=== PATIENT | female | born 1975 | race Caucasian/White ===

== ENCOUNTER 2017-10-03 11:44 | Emergency (ER) | payer BC ==
[2017-10-03 12:30] VITALS: BP 125/75
--- NOTE | 2017-10-03 12:30 | EDM.PDOC ---
ED HPI GENERAL MEDICAL PROBLEM - General Chief Complaint: General Stated Complaint: LEFT LEG PAIN Time Seen by Provider: 10/03/17 12:24 Source of Information: Reports: Patient, Family History Limitations: Reports: No Limitations - History of Present Illness INITIAL COMMENTS - FREE TEXT/NARRATIVE: 41 y.o.w.f with a h/o left lower leg varicosis came to the ed with her sister due to severe pain and swelling of her left lower leg. No SOB, Pt denies H/O DVT. No C/P, no N/V/D or any other acute medical issues. BP: 125/75 RR 18 Temp 36.6 O2 sat 98% on RA pulse 75 Onset Date: 10/03/17 Onset Time: 07:00 Duration: Hour(s): Location: Reports: Lower Extremity, Left Quality: Reports: Ache, Burning, Dull, Throbbing Severity: Moderate Improves with: Reports: Rest Worsens with: Reports: Movement Context: Reports: Other (H/O severe varicosis left lower leg) Associated Symptoms: Reports: Nausea/Vomiting (nasuae and spitting) - Related Data Allergies Allergy/AdvReac Type Severity Reaction Status Date / Time No Known Allergies Allergy Verified 10/03/17 12:17 ED ROS GENERAL - Review of Systems Review Of Systems: See Below Constitutional: Reports: No Symptoms HEENT: Reports: No Symptoms Respiratory: Reports: No Symptoms Cardiovascular: Reports: No Symptoms Endocrine: Reports: No Symptoms GI/Abdominal: Reports: No Symptoms : Reports: No Symptoms Musculoskeletal: Reports: Leg Pain (left ) Skin: Reports: No Symptoms Neurological: Reports: No Symptoms, Tingling (left lower leg) Psychiatric: Reports: No Symptoms Hematologic/Lymphatic: Reports: No Symptoms Immunologic: Reports: No Symptoms ED EXAM, GENERAL - Physical Exam Exam: See Below Exam Limited By: No Limitations General Appearance: Alert, WD/WN, Mild Distress Eye Exam: Bilateral Eye: Normal Inspection Ears: Normal External Exam, Normal Canal Ear Exam: Bilateral Ear: Auricle Normal Nose: Normal Inspection, Normal Mucosa, No Blood Throat/Mouth: Normal Inspection, Normal Lips, Normal Voice, No Airway Compromise Head: Atraumatic, Normocephalic Neck: Normal Inspection, Supple, Non-Tender Respiratory/Chest: No Respiratory Distress, Lungs Clear, Normal Breath Sounds Cardiovascular: Normal Peripheral Pulses, Regular Rate, Rhythm, No Edema Peripheral Pulses: 1+: Brachial (R) GI/Abdominal: Normal Bowel Sounds, Soft, Non-Tender, No Organomegaly, No Distention, No Abnormal Bruit, No Mass, Pelvis Stable (Female) Exam: Deferred Rectal (Female) Exam: Deferred Back Exam: Normal Inspection, Full Range of Motion Extremities: Normal Range of Motion, No Pedal Edema, Normal Capillary Refill, [place]'s Sign, Leg Pain, Limited Range of Motion, Other (severe varicosis left lower leg) Neurological: Alert, Oriented, CN II-XII Intact, Normal Cognition, Normal Gait, No Motor/Sensory Deficits Psychiatric: Normal Affect, Normal Mood Skin Exam: Warm, Dry, Intact, Normal Color, No Rash Lymphatic: No Adenopathy Course - Vital Signs Text/Narrative:: 41 y.o.w.f with a h/o left lower leg varicosis came to the ed with her sister due to severe pain and swelling of her left lower leg. No SOB, Pt denies H/O DVT. No C/P, no N/V/D or any other acute medical issues. BP: 125/75 RR 18 Temp 36.6 O2 sat 98% on RA pulse 75 PE: WNWD W F came to the ed with left lower leg swelling and varicosis, No SOB or CP Imaging: No US available till wednesday Impression: Varicosis left leg, pos [place] sign 12.22 pm Consultation: Dr. Nga CAVAZOS [facility]: Acepted the pt for further care. Plan: PT will go by PC, with Sister, directly to the ED [place] now. EMTALA form was signed Last Recorded V/S: Last Vital Signs Temp 36.9 C 10/03/17 12:15 Pulse 81 10/03/17 12:15 Resp 18 10/03/17 12:15 BP 125/75 10/03/17 12:15 Pulse Ox 98 10/03/17 12:15 Departure - Departure Time of Disposition: 12:31 Disposition: DC/Tfer to [facility] Condition: Good Clinical Impression: Leg swelling - Discharge Information Referrals: James Ruth MD [Primary Care Provider] - Forms: ED Department Discharge Additional Instructions: Please go straight to the ED at [facility]. I have spoken to Dr. Liang. DIRK. No Food, no drinks etx.
== END 2017-10-03 12:40 ==
LOC: FB.ED 11:44
DX: I83.892 Varicose veins of left lower extremity with other complications (principal)
CPT/HCPCS: 99284

== ENCOUNTER 2020-01-25 14:39 | Inpatient (IN) | payer BC ==
[2020-01-25] MEDS ORDERED: Promethazine 25 MG Tab PO PRN (15:28)
[2020-01-25] MEDS ORDERED: Ondansetron 4 MG/2 ML SDV IVPUSH PRN (15:28)
[2020-01-25] MEDS ORDERED: Polyethylene Glycol 3350 Powder 17 GM Packet PO PRN (15:35)
[2020-01-25] MEDS ORDERED: Sodium Chloride 0.9% 10 ML Syringe FLUSH PRN (15:35)
[2020-01-25] MEDS ORDERED: cefTRIAXone 2 GM in Sodium Chloride 0.9% 50 ML IV SCH (15:45)
[2020-01-25] MEDS: Sodium Chloride 0.9% 1,000 ML IV SCH (16:03)
[2020-01-25] MEDS: cefTRIAXone 2 GM Vial IVPUSH SCH (16:10)
[2020-01-25] MEDS: Azithromycin 500 MG in Sodium Chloride 0.9% 250 ML IV SCH (16:20)
[2020-01-25] MEDS: Acetaminophen 325 MG Tab PO PRN (16:26)
[2020-01-25] MEDS ORDERED: Sodium Chloride 0.9% 500 ML IV ONE (17:43)
--- NOTE | 2020-01-25 18:01 | PCM.HP.2 ---
H&P History of Present Illness - General Date of Service: 01/25/20 Admit Problem/Dx: Admission Diagnosis/Problem Admission Diagnosis/Problem Pneumonia Source of Information: Patient, Provider - History of Present Illness Initial Comments - Free Text/Narative: Jenny [facility] with fever, chills, shortness of breath, wheezing for past 4 days. She had gotten a cold over Labor Day that her daughter had, but was feeling better going into the weekend. On Wednesday she started having fevers, chills and started declining since then. Sore throat, nasal congestion, body aches. Loss of appetite, hasn't eaten much all week. Started having nausea and vomiting yesterday. No diarrhea, tends to have constipation, takes MiraLAX for this. No dysuria, or frequency, hematuria. Decreased urine output. No rash, easy bruising or bleeding. WBC in clinic was 13.0, with left shift. Chemistry was normal, LFTs were normal. COVID and Influenza were negative. CXR should Right lower lobe pneumonia. Temp in clinic was 100.7, had taken Tylenol before coming to clinic, her blood pressure 93/55. Oxygen in clinic was 90% on Room air, given nebulized treatment, no change in oxygen saturation there but came up to 93% when she reached the floor. - Related Data Allergies/Adverse Reactions: Allergies Allergy/AdvReac Type Severity Reaction Status Date / Time No Known Allergies Allergy Verified 01/25/20 16:19 Home Medications: Home Meds .Fish Oil 1 cap PO 199910/03/17 [History] Multivitamin [Daily Multiple Vitamin] 1 tab PO 199910/03/17 [History] lisinopriL [Lisinopril] 10 mg PO 199901/25/20 [History] Past Medical History HEENT History: Reports: Other (See Below) Other HEENT History: Wears glasses. Cardiovascular History: Reports: Other (See Below) Other Cardiovascular History: Takes Lisinopril. Respiratory History: Reports: Asthma, Pneumonia, Recurrent, Other (See Below) Other Respiratory History: care home smoker. D[employer] History: Reports: Neurological History: Reports: Migraines, Other (See Below) Other Neuro History: Receives Botox shots every 12 weeks for migraines. - Infectious Disease History Infectious Disease History: Reports: Chicken Pox - Past Surgical History GI Surgical History: Reports: Cholecystectomy, Hernia, Abdominal, Other (See Below) Other GI Surgeries/Procedures: Recent weight lost as a result of lifestyle changes. States 6 surgeries on umbilical hernia, had pig skin placed. Female Surgical History: Reports: Hysterectomy Musculoskeletal Surgical History: Reports: Other (See Below) Other Musculoskeletal Surgeries/Procedures:: History of cyst removed from left foot and tail bone. History of toe nail removed both great toes. Social & Family History - Tobacco Use Smoking Status *Q: Current Every Day Smoker Years of Tobacco use: 26 Packs/Tins Daily: 0.5 H&P Review of Systems - Review of Systems: Review Of Systems: Comprehensive ROS is negative, except as noted in HPI. Exam - Exam Exam: See Below - Vital Signs Vital Signs: Last Vital Signs Temp 98.2 F 01/25/20 17:30 Pulse 81 01/25/20 17:30 Resp 18 01/25/20 17:30 BP 91/33 L 01/25/20 17:30 Pulse Ox 93 L 01/25/20 17:30 Weight: 210 lb 1.6 oz - Exam General: Alert, Oriented, Cooperative, Mild Distress HEENT: PERRLA, Conjunctiva Clear, EOMI, Hearing Intact, Mucosa Moist & [place], Posterior Pharynx Clear, Other Neck: Supple, Trachea Midline, Lymphadenopathy Lungs: Normal Respiratory Effort, Rales (RLL), Wheezing (wheezing throughout) Cardiovascular: Regular Rate, Regular Rhythm, Normal S1, Normal S2 GI/Abdominal Exam: Normal Bowel Sounds, Soft, Non-Tender, No Distention (Female) Exam: Deferred Rectal (Female) Exam: Deferred Back Exam: Normal Inspection. No: CVA Tenderness (R), CVA Tenderness (L) Extremities: Normal Inspection, No Pedal Edema, Normal Capillary Refill Peripheral Pulses: 2+: Radial (L), Radial (R), Posterior Tibial (L), Posterior Tibial (R), Dorsalis Pedis (L), Dorsalis Pedis (R) Skin: Warm, Dry, Intact Neurological: Cranial Nerves Intact, Normal Speech Sepsis Event Note - Evaluation Sepsis Screening Result: No Definite Risk - Focused Exam Vital Signs: Vital Signs Temp Pulse Resp BP Pulse Ox 01/25/20 17:30 98.2 F 81 18 91/33 L 93 L 01/25/20 15:28 98.8 F 83 18 93/55 L 93 L *Q Meaningful Use (ADM) - VTE Risk Assess *Q Each Risk Factor Represents 1 Point: Age 41 - 59 years, Serious lung disease including pneumonia Total Score 1 Point Risk Factors: 2 Each Risk Factor Represents 2 Points: None Total Score 2 Point Risk Factors: 0 Each Risk Factor Represents 3 Points: None Total Score 3 Point Risk Factors: 0 Each Risk Factor Represents 5 Points: None Total Score 5 Point Risk Factors: 0 Venous Thromboembolism Risk Factor Score *Q: 2 - Problem List (1) Pneumonia SNOMED Code(s): 257480478 ICD Code: J18.9 - PNEUMONIA, UNSPECIFIED ORGANISM Status: Acute Current Visit: Yes Qualifiers: Laterality: right Lung location: lower lobe of lung (2) Dehydration SNOMED Code(s): 87257075 ICD Code: E86.0 - DEHYDRATION Status: Acute Current Visit: Yes (3) Nausea & vomiting SNOMED Code(s): 93709263 ICD Code: R11.2 - NAUSEA WITH VOMITING, UNSPECIFIED Status: Acute Current Visit: Yes (4) Asthma SNOMED Code(s): 877680922 ICD Code: J45.909 - UNSPECIFIED ASTHMA, UNCOMPLICATED Status: Chronic Current Visit: Yes Problem List Initiated/Reviewed/Updated: Yes Orders Last 24hrs: Active Orders 24 hr Category Date Time Status Patient Status [ADT] Routine ADT 01/25/20 15:28 Active Ambulate [RC] .PRN Care 01/25/20 15:29 Active Oxygen Therapy [RC] .PRN Care 01/25/20 15:28 Active Pneumonia Education [RC] ASDIRECTED Care 01/25/20 15:37 Active RT Aerosol Therapy [RC] ASDIRECTED Care 01/25/20 15:37 Active RT Incentive Spirometry [RC] Q1HWA Care 01/25/20 15:37 Active Up ad Debbie [RC] .PRN Care 01/25/20 15:28 Active Vital Signs [RC] 00,04,08,12,16,20 Care 01/25/20 15:28 Active Clear Liquid Diet [DIET] Diet 01/25/20 Dinner Active BASIC METABOLIC PANEL,BMP [CHEM] Routine Lab 01/26/20 06:00 Ordered CBC WITH AUTO DIFF [HEME] Routine Lab 01/26/20 06:00 Ordered CULTURE BLOOD [BC] Urgent Lab 01/25/20 15:52 Received CULTURE BLOOD [BC] Urgent Lab 01/25/20 15:58 Received CULTURE SPUTUM + SMEAR [RM] Routine Lab 01/25/20 15:37 Ordered Acetaminophen [TylenoL] Med 01/25/20 15:28 Active 650 mg PO Q4H PRN Albuterol [Proventil Neb Soln] Med 01/25/20 15:28 Active 2.5 mg NEB Q2H PRN Azithromycin [Zithromax] 500 mg Med 01/25/20 16:00 Active Sodium Chloride 0.9% [Normal Saline (AdvBag)] 250 ml IV Q24H Ibuprofen [Motrin] Med 01/25/20 15:28 Active 400 mg PO Q6H PRN Multivitamins [Tab-A-Brittaney] Med 01/25/20 20:00 Ordered 1 tab PO 2000 Ondansetron [Zofran] Med 01/25/20 15:28 Active 4 mg IVPUSH Q4H PRN Promethazine [Phenergan] Med 01/25/20 15:28 Active 25 mg PO Q6H PRN Sodium Chloride 0.9% [Normal Saline] 1,000 ml Med 01/25/20 15:30 Active IV ASDIRECTED Sodium Chloride 0.9% [Normal Saline] 500 ml Med 01/25/20 17:43 Ordered IV .BOLUS Sodium Chloride 0.9% [Saline Flush] Med 01/25/20 15:35 Active 10 ml FLUSH ASDIRECTED PRN cefTRIAXone [Rocephin] Med 01/25/20 16:00 Active 2 gm IVPUSH Q24H guaiFENesin [Mucinex] Med 01/25/20 21:00 Active 600 mg PO BID polyethylene glycoL 3350 [MiraLAX] Med 01/25/20 15:35 Active 17 gm PO DAILY PRN Blood Culture x2 Reflex Set [OM.PC] Urgent Oth 01/25/20 15:37 Ordered Give supplemental Oxygen PRN [COMM] Routine Oth 01/25/20 15:37 Ordered Saline Lock Insert [OM.PC] Routine Oth 01/25/20 15:28 Ordered Resuscitation Status Routine Resus Stat 01/25/20 15:28 Ordered Medication Orders Acetaminophen (Tylenol) 650 mg PO Q4H PRN PRN Reason: Pain (Mild 1-3)/fever Last Admin: 01/25/20 16:26 Dose: 650 mg Documented by: MICAELA Albuterol (Proventil Neb Soln) 2.5 mg NEB Q2H PRN PRN Reason: Shortness Of Breath/wheezing Ceftriaxone Sodium (Rocephin) 2 gm IVPUSH Q24H [facility] Last Admin: 01/25/20 16:10 Dose: 2 gm Documented by: MICAELA Guaifenesin (Mucinex) 600 mg PO BID [facility] Sodium Chloride (Normal Saline) 1,000 mls @ 125 mls/hr IV ASDIRECTED [facility] Last Admin: 01/25/20 16:03 Dose: 125 mls/hr Documented by: MICAELA Azithromycin 500 mg/ Sodium (Chloride) 250 mls @ 250 mls/hr IV Q24H [facility] Last Admin: 01/25/20 16:20 Dose: 250 mls/hr Documented by: MICAELA Ibuprofen (Motrin) 400 mg PO Q6H PRN PRN Reason: Pain (mild 1-3) Multivitamins/Minerals/Vitamin C (Tab-A-Brittaney) 1 tab PO 2000 [facility] Ondansetron HCl (Zofran) 4 mg IVPUSH Q4H PRN PRN Reason: Nausea/Vomiting Polyethylene Glycol (Miralax) 17 gm PO DAILY PRN PRN Reason: Constipation Promethazine HCl (Phenergan) 25 mg PO Q6H PRN PRN Reason: nausea, able to take PO Sodium Chloride (Saline Flush) 10 ml FLUSH ASDIRECTED PRN PRN Reason: Keep Vein Open Assessment/Plan Comment:: 1. Admit to inpatient for pneumonia, history of asthma. 2. Rocephin 2 g IV q24h, Azithromycin 500 mg IV q24h. Albuterol nebs. Repeat labs tomorrow. 3. Clear liquids. Zofran and Phenergan as needed nausea. 4. NS 500 ml bolus, then 125 ml/hr. 5. FULL CODE. 6. Adjust treatments as necessary. - Mortality Measure Prognosis:: Good
[2020-01-25] MEDS: Albuterol 0.083% 2.5 MG/3 ML Neb Soln NEB PRN ×2 (18:56→20:58)
[2020-01-25] MEDS: guaiFENesin 600 MG Tab.ER PO SCH (20:58)
[2020-01-25] MEDS: Multivitamin Tab PO SCH (20:58)
[2020-01-26] MEDS: Albuterol 0.083% 2.5 MG/3 ML Neb Soln NEB PRN ×6 (02:09→21:21)
[2020-01-26] MEDS: Sodium Chloride 0.9% 1,000 ML IV SCH ×3 (02:09→19:19)
[2020-01-26] MEDS: Ibuprofen 400 MG Tab PO PRN ×3 (02:32→15:59)
[2020-01-26] MEDS: guaiFENesin 600 MG Tab.ER PO SCH ×2 (08:19→20:41)
[2020-01-26] MEDS: Saccharomyces Boulardii (Probiotic) 250 MG Cap PO SCH ×2 (10:13→20:41)
[2020-01-26] MEDS: Acetaminophen 325 MG Tab PO PRN ×2 (12:38→18:35)
--- NOTE | 2020-01-26 14:21 | PCM.PN ---
- General Info Date of Service: 01/26/20 Subjective Update: Jenny is feeling better, still has a headache, states it is not like her migraine, states she has this type when her blood pressure is low. Her wheezing is better, doesn't feel as tight. No nausea or vomiting. Has not had a bowel movement and having some pain with it. Body aches are better. - Patient Data Vitals - Most Recent: Last Vital Signs Temp 98.0 F 01/26/20 12:00 Pulse 65 01/26/20 12:00 Resp 17 01/26/20 12:00 BP 103/58 L 01/26/20 12:00 Pulse Ox 95 01/26/20 12:00 Weight - Most Recent: 210 lb 1.6 oz I&O - Last 24 Hours: Intake & Output 01/25/20 01/26/20 01/26/20 22:59 06:59 14:59 Intake Total 1496 908 Output Total 0 Balance 1496 908 Lab Results Last 24 Hours: Laboratory Results - last 24 hr 01/26/20 01/26/20 Range/Units 06:06 06:06 WBC 7.6 (4.5-12.0) X10-3/uL RBC 3.91 (3.23-5.20) x10(6)uL Hgb 12.5 (11.5-15.5) g/dL Hct 38.2 (30.0-51.3) % MCV 97.6 H (80-96) fL MCH 32.1 (27.7-33.6) pg MCHC 32.9 (32.2-35.4) g/dL RDW 12.1 (11.5-15.5) % Plt Count 266 (125-369) X10(3)uL MPV 6.6 L (7.4-10.4) fL Neut % (Auto) 63.8 (46-82) % Lymph % (Auto) 26.0 (13-37) % [place] % (Auto) 8.5 (4-12) % Eos % (Auto) 1 (1.0-5.0) % Baso % (Auto) 1 (0-2) % Neut # (Auto) 4.9 (1.6-8.3) # Lymph # (Auto) 2.0 (0.6-5.0) # [place] # (Auto) 0.6 (0.0-1.3) # Eos # (Auto) 0.1 (0.0-0.8) # Baso # (Auto) 0.0 (0.0-0.2) # Sodium 142 (135-145) mmol/L Potassium 4.6 (3.5-5.3) mmol/L Chloride 108 D (100-110) mmol/L Carbon Dioxide 27 (21-32) mmol/L BUN 5 L (7-18) mg/dL Creatinine 0.5 L (0.55-1.02) mg/dL Est Cr Clr Drug Dosing 125.28 mL/min Estimated GFR (MDRD) > 60 (>60) BUN/Creatinine Ratio 10.0 (9-20) Glucose 85 (80-116) mg/dL Calcium 8.2 L (8.6-10.2) mg/dL Med Orders - Current: Current Medications Acetaminophen (Tylenol) 650 mg PO Q4H PRN PRN Reason: Pain (Mild 1-3)/fever Last Admin: 01/26/20 12:38 Dose: 650 mg Documented by: Albuterol (Proventil Neb Soln) 2.5 mg NEB Q2H PRN PRN Reason: Shortness Of Breath/wheezing Last Admin: 01/26/20 12:39 Dose: 2.5 mg Documented by: Ceftriaxone Sodium (Rocephin) 2 gm IVPUSH Q24H [facility] Last Admin: 01/25/20 16:10 Dose: 2 gm Documented by: Guaifenesin (Mucinex) 600 mg PO BID [facility] Last Admin: 01/26/20 08:19 Dose: 600 mg Documented by: Sodium Chloride (Normal Saline) 1,000 mls @ 125 mls/hr IV ASDIRECTED [facility] Last Admin: 01/26/20 10:14 Dose: 125 mls/hr Documented by: Azithromycin 500 mg/ Sodium (Chloride) 250 mls @ 250 mls/hr IV Q24H [facility] Last Admin: 01/25/20 16:20 Dose: 250 mls/hr Documented by: Ibuprofen (Motrin) 400 mg PO Q6H PRN PRN Reason: Pain (mild 1-3) Last Admin: 01/26/20 08:22 Dose: 400 mg Documented by: Multivitamins/Minerals/Vitamin C (Tab-A-Brittaney) 1 tab PO DAILY@1999 [facility] Last Admin: 01/25/20 20:58 Dose: 1 tab Documented by: Ondansetron HCl (Zofran) 4 mg IVPUSH Q4H PRN PRN Reason: Nausea/Vomiting Last Admin: 01/25/20 17:55 Dose: 4 mg Documented by: Polyethylene Glycol (Miralax) 17 gm PO DAILY PRN PRN Reason: Constipation Last Admin: 01/26/20 08:28 Dose: 17 gm Documented by: Promethazine HCl (Phenergan) 25 mg PO Q6H PRN PRN Reason: nausea, able to take PO Saccharomyces Boulardii (Florastor) 250 mg PO BID [facility] Last Admin: 01/26/20 10:13 Dose: 250 mg Documented by: Sodium Chloride (Saline Flush) 10 ml FLUSH ASDIRECTED PRN PRN Reason: Keep Vein Open Discontinued Medications Sodium Chloride (Normal Saline) 500 mls @ 500 mls/hr IV .BOLUS ONE Stop: 01/25/20 18:42 Last Admin: 01/25/20 17:54 Dose: 500 mls/hr Documented by: - Exam General: Alert, Oriented, Cooperative, No Acute Distress Lungs: Clear to Auscultation (BUL), Normal Respiratory Effort, Decreased Breath Sounds (RLL), Crackles (RLL). No: Wheezing Cardiovascular: Regular Rate, Regular Rhythm, No Murmurs GI/Abdominal Exam: Normal Bowel Sounds, Soft, No Distention, Guarding, Tender (diffuse). No: Rigid, Rebound Extremities: No Pedal Edema Peripheral Pulses: 2+: Radial (L), Radial (R) Skin: Warm, Dry, Intact Sepsis Event Note - Evaluation Sepsis Screening Result: No Definite Risk - Focused Exam Vital Signs: Vital Signs Temp Pulse Resp BP Pulse Ox 01/26/20 12:00 98.0 F 65 17 103/58 L 95 01/26/20 08:00 98.0 F 64 18 100/50 L 94 L 01/26/20 06:00 97.7 F 78 16 104/64 97 - Problem List & Annotations (1) Pneumonia SNOMED Code(s): 038470511 Code(s): J18.9 - PNEUMONIA, UNSPECIFIED ORGANISM Status: Acute Current Visit: Yes Qualifiers: Laterality: right Lung location: lower lobe of lung (2) Dehydration SNOMED Code(s): 83424258 Code(s): E86.0 - DEHYDRATION Status: Acute Current Visit: Yes (3) Nausea & vomiting SNOMED Code(s): 25614735 Code(s): R11.2 - NAUSEA WITH VOMITING, UNSPECIFIED Status: Resolved Current Visit: Yes (4) Asthma SNOMED Code(s): 432458021 Code(s): J45.909 - UNSPECIFIED ASTHMA, UNCOMPLICATED Status: Chronic Current Visit: Yes - Problem List Review Problem List Initiated/Reviewed/Updated: Yes - My Orders Last 24 Hours: My Active Orders 01/25/20 15:28 Patient Status [ADT] Routine Oxygen Therapy [RC] .PRN Up ad Debbie [RC] .PRN Vital Signs [RC] 00,04,08,12,16,20 Acetaminophen [TylenoL] 650 mg PO Q4H PRN Albuterol [Proventil Neb Soln] 2.5 mg NEB Q2H PRN Ibuprofen [Motrin] 400 mg PO Q6H PRN Ondansetron [Zofran] 4 mg IVPUSH Q4H PRN Promethazine [Phenergan] 25 mg PO Q6H PRN Saline Lock Insert [OM.PC] Routine Resuscitation Status Routine 01/25/20 15:29 Ambulate [RC] .PRN 01/25/20 15:30 Sodium Chloride 0.9% [Normal Saline] 1,000 ml IV ASDIRECTED 01/25/20 15:35 Sodium Chloride 0.9% [Saline Flush] 10 ml FLUSH ASDIRECTED PRN polyethylene glycoL 3350 [MiraLAX] 17 gm PO DAILY PRN 01/25/20 15:37 Pneumonia Education [RC] ASDIRECTED RT Aerosol Therapy [RC] .PRN RT Incentive Spirometry [RC] Q1HWA CULTURE SPUTUM + SMEAR [RM] Routine Blood Culture x2 Reflex Set [OM.PC] Urgent Give supplemental Oxygen PRN [COMM] Routine 01/25/20 15:52 CULTURE BLOOD [BC] Urgent 01/25/20 15:58 CULTURE BLOOD [BC] Urgent 01/25/20 16:00 Azithromycin [Zithromax] 500 mg Sodium Chloride 0.9% [Normal Saline (AdvBag)] 250 ml IV Q24H cefTRIAXone [Rocephin] 2 gm IVPUSH Q24H 01/25/20 Dinner Clear Liquid Diet [DIET] 01/25/20 20:00 Multivitamins [Tab-A-Brittaney] 1 tab PO DAILY@199901/25/20 21:00 guaiFENesin [Mucinex] 600 mg PO BID 01/26/20 09:15 Saccharomyces Boulardii [Florastor] 250 mg PO BID - Plan Plan:: 1. Pneumonia: Rocephin 2 g IV q24h, Azithromycin 500 mg IV q24h day 2. Albuterol nebs. Labs normal today, follow clinically. 2. Clear liquids, does not want to advance her diet yet. Zofran and Phenergan as needed nausea. 3. NS 125 ml/hr. 4. Adjust treatments as necessary.
[2020-01-26] MEDS: Azithromycin 500 MG in Sodium Chloride 0.9% 250 ML IV SCH (15:42)
[2020-01-26] MEDS: cefTRIAXone 2 GM Vial IVPUSH SCH (16:01)
[2020-01-26] MEDS: Multivitamin Tab PO SCH (20:41)
[2020-01-26] MEDS: Budesonide 0.25 MG/2 ML Neb Susp NEB SCH (21:43)
[2020-01-27] MEDS: Sodium Chloride 0.9% 1,000 ML IV SCH ×3 (02:51→21:32)
[2020-01-27] MEDS: Budesonide 0.25 MG/2 ML Neb Susp NEB SCH ×2 (06:01→21:05)
[2020-01-27] MEDS: Albuterol 0.083% 2.5 MG/3 ML Neb Soln NEB PRN ×3 (07:55→20:37)
[2020-01-27] MEDS: Acetaminophen 325 MG Tab PO PRN ×3 (07:57→17:41)
[2020-01-27] MEDS: guaiFENesin 600 MG Tab.ER PO SCH ×2 (08:01→20:39)
[2020-01-27] MEDS: Saccharomyces Boulardii (Probiotic) 250 MG Cap PO SCH ×2 (08:01→20:38)
[2020-01-27] MEDS: Ibuprofen 400 MG Tab PO PRN ×2 (08:02→20:45)
--- NOTE | 2020-01-27 10:27 | PCM.PN ---
- General Info Date of Service: 01/27/20 Subjective Update: Jenny slept well last night, was able to get up to bathroom independently this morning, still wheezing. Was able to give us a sputum culture. Budesonide nebs are helping. Her headache is better with improvement of her blood pressure, pain controlled with Tylenol & Ibuprofen. No BM yet. Agreeable to get up and walk today. Restarted her home MiraLAX, and Metamucil in addition to twice a day Probiotic. - Patient Data Vitals - Most Recent: Last Vital Signs Temp 98.4 F 01/27/20 07:46 Pulse 79 01/27/20 07:46 Resp 18 01/27/20 07:46 BP 125/71 01/27/20 06:00 Pulse Ox 94 L 01/27/20 07:46 Weight - Most Recent: 210 lb 1.6 oz I&O - Last 24 Hours: Intake & Output 01/26/20 01/27/20 01/27/20 22:59 06:59 14:59 Intake Total 2040 1048 Balance 2040 1048 Lab Results Last 24 Hours: Laboratory Results - last 24 hr 01/27/20 01/27/20 Range/Units 06:15 06:15 WBC 7.1 (4.5-12.0) X10-3/uL RBC 3.81 (3.23-5.20) x10(6)uL Hgb 12.4 (11.5-15.5) g/dL Hct 37.5 (30.0-51.3) % MCV 98.4 H (80-96) fL MCH 32.6 (27.7-33.6) pg MCHC 33.2 (32.2-35.4) g/dL RDW 12.1 (11.5-15.5) % Plt Count 286 (125-369) X10(3)uL MPV 6.9 L (7.4-10.4) fL Neut % (Auto) 62.9 (46-82) % Lymph % (Auto) 24.2 (13-37) % Runnels % (Auto) 9.4 (4-12) % Eos % (Auto) 3 (1.0-5.0) % Baso % (Auto) 1 (0-2) % Neut # (Auto) 4.5 (1.6-8.3) # Lymph # (Auto) 1.7 (0.6-5.0) # Runnels # (Auto) 0.7 (0.0-1.3) # Eos # (Auto) 0.2 (0.0-0.8) # Baso # (Auto) 0.0 (0.0-0.2) # Sodium 144 (135-145) mmol/L Potassium 3.9 (3.5-5.3) mmol/L Chloride 108 (100-110) mmol/L Carbon Dioxide 26 (21-32) mmol/L BUN 4 L (7-18) mg/dL Creatinine 0.6 (0.55-1.02) mg/dL Est Cr Clr Drug Dosing 104.40 mL/min Estimated GFR (MDRD) > 60 (>60) BUN/Creatinine Ratio 6.7 L (9-20) Glucose 85 (80-116) mg/dL Calcium 8.1 L (8.6-10.2) mg/dL Lamonte Results Last 24 Hours: Microbiology 01/26/20 17:30 Gram Stain - Final Sputum - Expectorated 01/25/20 15:52 Aerobic Blood Culture - Preliminary Blood - Venous NO GROWTH AFTER 1 DAY Anaerobic Blood Culture - Preliminary NO GROWTH AFTER 1 DAY 01/25/20 15:58 Aerobic Blood Culture - Preliminary Blood - Venous - Lab Draw NO GROWTH AFTER 1 DAY Anaerobic Blood Culture - Preliminary NO GROWTH AFTER 1 DAY Med Orders - Current: Current Medications Acetaminophen (Tylenol) 650 mg PO Q4H PRN PRN Reason: Pain (Mild 1-3)/fever Last Admin: 01/27/20 07:57 Dose: 650 mg Documented by: Albuterol (Proventil Neb Soln) 2.5 mg NEB Q2H PRN PRN Reason: Shortness Of Breath/wheezing Last Admin: 01/27/20 07:55 Dose: 2.5 mg Documented by: Budesonide (Pulmicort) 0.25 mg NEB BIDRT [facility] Last Admin: 01/27/20 06:01 Dose: 0.25 mg Documented by: Ceftriaxone Sodium (Rocephin) 2 gm IVPUSH Q24H [facility] Last Admin: 01/26/20 16:01 Dose: 2 gm Documented by: Guaifenesin (Mucinex) 600 mg PO BID [facility] Last Admin: 01/27/20 08:01 Dose: 600 mg Documented by: Sodium Chloride (Normal Saline) 1,000 mls @ 100 mls/hr IV ASDIRECTED [facility] Last Admin: 01/27/20 02:51 Dose: 125 mls/hr Documented by: Azithromycin 500 mg/ Sodium (Chloride) 250 mls @ 250 mls/hr IV Q24H [facility] Last Admin: 01/26/20 15:42 Dose: 250 mls/hr Documented by: Ibuprofen (Motrin) 400 mg PO Q6H PRN PRN Reason: Pain (mild 1-3) Last Admin: 01/27/20 08:02 Dose: 400 mg Documented by: Multivitamins/Minerals/Vitamin C (Tab-A-Brittaney) 1 tab PO DAILY@1999 [facility] Last Admin: 01/26/20 20:41 Dose: 1 tab Documented by: Ondansetron HCl (Zofran) 4 mg IVPUSH Q4H PRN PRN Reason: Nausea/Vomiting Last Admin: 01/25/20 17:55 Dose: 4 mg Documented by: Polyethylene Glycol (Miralax) 17 gm PO DAILY [facility] Promethazine HCl (Phenergan) 25 mg PO Q6H PRN PRN Reason: nausea, able to take PO Last Admin: 01/26/20 22:29 Dose: 25 mg Documented by: Psyllium Husk (Metamucil Sugar Free) 1 pkt PO DAILY [facility] Saccharomyces Boulardii (Florastor) 250 mg PO BID [facility] Last Admin: 01/27/20 08:01 Dose: 250 mg Documented by: Sodium Chloride (Saline Flush) 10 ml FLUSH ASDIRECTED PRN PRN Reason: Keep Vein Open Discontinued Medications Sodium Chloride (Normal Saline) 500 mls @ 500 mls/hr IV .BOLUS ONE Stop: 01/25/20 18:42 Last Admin: 01/25/20 17:54 Dose: 500 mls/hr Documented by: Polyethylene Glycol (Miralax) 17 gm PO DAILY PRN PRN Reason: Constipation Last Admin: 01/26/20 08:28 Dose: 17 gm Documented by: - Exam General: Alert, Oriented, Cooperative, No Acute Distress Lungs: Normal Respiratory Effort, Decreased Breath Sounds (bibasilar), Rales (bibasilar), Wheezing (BLL, occasional in BUL) Cardiovascular: Regular Rate, Regular Rhythm GI/Abdominal Exam: Normal Bowel Sounds, Soft, No Distention, Guarding, Tender. No: Rigid, Rebound Extremities: No Pedal Edema Sepsis Event Note - Evaluation Sepsis Screening Result: No Definite Risk - Focused Exam Vital Signs: Vital Signs Temp Pulse Resp BP Pulse Ox 01/27/20 07:46 98.4 F 79 18 94 L 01/27/20 06:00 98.1 F 80 18 125/71 94 L - Problem List & Annotations (1) Pneumonia SNOMED Code(s): 318029186 Code(s): J18.9 - PNEUMONIA, UNSPECIFIED ORGANISM Status: Acute Current Visit: Yes Qualifiers: Laterality: right Lung location: lower lobe of lung (2) Dehydration SNOMED Code(s): 34557469 Code(s): E86.0 - DEHYDRATION Status: Acute Current Visit: Yes Annotation/Comment:: improving, still on clears. Encouraged to try soft diet today. (3) Nausea & vomiting SNOMED Code(s): 87275987 Code(s): R11.2 - NAUSEA WITH VOMITING, UNSPECIFIED Status: Resolved Current Visit: Yes (4) Asthma SNOMED Code(s): 142299488 Code(s): J45.909 - UNSPECIFIED ASTHMA, UNCOMPLICATED Status: Chronic Current Visit: Yes (5) Chronic idiopathic constipation SNOMED Code(s): 38777248 Code(s): K59.04 - CHRONIC IDIOPATHIC CONSTIPATION Status: Chronic Current Visit: Yes - Problem List Review Problem List Initiated/Reviewed/Updated: Yes - My Orders Last 24 Hours: My Active Orders 01/26/20 17:15 RT Aerosol Therapy [RC] ASDIRECTED 01/26/20 17:30 CULTURE SPUTUM + SMEAR [RM] Routine 01/26/20 21:00 Budesonide [Pulmicort] 0.25 mg NEB BIDRT 01/27/20 08:30 Communication Order [RC] ROUTINE 01/27/20 09:00 Psyllium Husk/Aspartame [Metamucil Sugar Free] 1 pkt PO DAILY polyethylene glycoL 3350 [MiraLAX] 17 gm PO DAILY - Plan Plan:: 1. Pneumonia: Rocephin 2 g IV q24h, Azithromycin 500 mg IV q24h day 3. Albuterol nebs. Budesonide nebs added yesterday. Sputum culture pending. 2. Soft diet. Zofran and Phenergan as needed nausea. 3. NS 100 ml/hr. 4. Constipation: MiraLAX daily, Metamucil daily, Probiotics twice a day. Hold for loose stools 5. Adjust treatments as necessary.
[2020-01-27] MEDS: Polyethylene Glycol 3350 Powder 17 GM Packet PO SCH (10:28)
[2020-01-27] MEDS: Psyllium Husk Powder Sugar Free 5.85 GM Packet PO SCH (10:28)
[2020-01-27] MEDS: cefTRIAXone 2 GM Vial IVPUSH SCH (15:37)
[2020-01-27] MEDS: Azithromycin 500 MG in Sodium Chloride 0.9% 250 ML IV SCH (15:47)
[2020-01-27] MEDS: Multivitamin Tab PO SCH (20:38)
[2020-01-28] MEDS: Sodium Chloride 0.9% 1,000 ML IV SCH (06:13)
[2020-01-28] MEDS: Budesonide 0.25 MG/2 ML Neb Susp NEB SCH (06:13)
[2020-01-28] MEDS: Acetaminophen 325 MG Tab PO PRN ×2 (08:07→13:22)
[2020-01-28] MEDS: Ibuprofen 400 MG Tab PO PRN ×3 (08:08→21:09)
[2020-01-28] MEDS: Albuterol 0.083% 2.5 MG/3 ML Neb Soln NEB PRN ×2 (08:08→13:24)
[2020-01-28] MEDS: guaiFENesin 600 MG Tab.ER PO SCH ×2 (08:09→20:40)
[2020-01-28] MEDS: Saccharomyces Boulardii (Probiotic) 250 MG Cap PO SCH ×2 (08:09→20:41)
[2020-01-28] MEDS: Psyllium Husk Powder Sugar Free 5.85 GM Packet PO SCH (08:28)
[2020-01-28] MEDS: Polyethylene Glycol 3350 Powder 17 GM Packet PO SCH (08:28)
--- NOTE | 2020-01-28 12:05 | PCM.PN ---
- General Info Date of Service: 01/28/20 Subjective Update: Sergio has been drinking well, tolerating her diet. She had a bowel movement this morning and abdominal pain is better. Noticed that she had a headache after Budesonide nebs this morning and wanted to try a different type of inhaler. She does not want to do oral steroids as it takes days for her to get back to normal in the past. She does not have a long acting LABA/steroid at home, only uses ProAir or DuoNebs at home if she is sick. She is still wheezing today but on room air. States she was able to walk to the bathroom, halls this morning and not as short of breath. Still some fatigue. 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 Functional Status: Reports: Pain Controlled, Tolerating Diet, Ambulating, Urinating. Denies: New Symptoms - Patient Data Vitals - Most Recent: Last Vital Signs Temp 97.1 F 01/28/20 08:00 Pulse 73 01/28/20 08:00 Resp 16 01/28/20 08:00 BP 123/64 01/28/20 08:00 Pulse Ox 97 01/28/20 08:00 Weight - Most Recent: 210 lb 1.6 oz I&O - Last 24 Hours: Intake & Output 01/27/20 01/28/20 01/28/20 22:59 06:59 14:59 Intake Total 800 868 Balance 800 868 [place] Results Last 24 Hours: Microbiology 01/25/20 15:52 Aerobic Blood Culture - Preliminary Blood - Venous NO GROWTH AFTER 2 DAYS Anaerobic Blood Culture - Preliminary NO GROWTH AFTER 2 DAYS 01/25/20 15:58 Aerobic Blood Culture - Preliminary Blood - Venous - Lab Draw NO GROWTH AFTER 2 DAYS Anaerobic Blood Culture - Preliminary NO GROWTH AFTER 2 DAYS Med Orders - Current: Current Medications Acetaminophen (Tylenol) 650 mg PO Q4H PRN PRN Reason: Pain (Mild 1-3)/fever Last Admin: 01/28/20 08:07 Dose: 650 mg Documented by: Albuterol (Proventil Neb Soln) 2.5 mg NEB Q2H PRN PRN Reason: Shortness Of Breath/wheezing Last Admin: 01/28/20 08:08 Dose: 2.5 mg Documented by: Azithromycin (Zithromax) 500 mg PO Q24H [facility] Budesonide (Pulmicort) 0.25 mg NEB BIDRT [facility] Last Admin: 01/28/20 06:13 Dose: 0.25 mg Documented by: Cefdinir (Omnicef) 300 mg PO BID [facility] Guaifenesin (Mucinex) 600 mg PO BID [facility] Last Admin: 01/28/20 08:09 Dose: 600 mg Documented by: Ibuprofen (Motrin) 400 mg PO Q6H PRN PRN Reason: Pain (mild 1-3) Last Admin: 01/28/20 08:08 Dose: 400 mg Documented by: Mometasone Furoate/Formoterol Fumar (Dulera 100-5 Mcg) 2 puff IH BIDRT [facility] Multivitamins/Minerals/Vitamin C (Tab-A-Brittaney) 1 tab PO DAILY@1999 [facility] Last Admin: 01/27/20 20:38 Dose: 1 tab Documented by: Ondansetron HCl (Zofran) 4 mg IVPUSH Q4H PRN PRN Reason: Nausea/Vomiting Last Admin: 01/25/20 17:55 Dose: 4 mg Documented by: Polyethylene Glycol (Miralax) 17 gm PO DAILY [facility] Last Admin: 01/28/20 08:28 Dose: 17 gm Documented by: Promethazine HCl (Phenergan) 25 mg PO Q6H PRN PRN Reason: nausea, able to take PO Last Admin: 01/26/20 22:29 Dose: 25 mg Documented by: Psyllium Husk (Metamucil Sugar Free) 1 pkt PO DAILY [facility] Last Admin: 01/28/20 08:28 Dose: 1 pkt Documented by: Saccharomyces Boulardii (Florastor) 250 mg PO BID [facility] Last Admin: 01/28/20 08:09 Dose: 250 mg Documented by: Sodium Chloride (Saline Flush) 10 ml FLUSH ASDIRECTED PRN PRN Reason: Keep Vein Open Discontinued Medications Ceftriaxone Sodium (Rocephin) 2 gm IVPUSH Q24H [facility] Last Admin: 01/27/20 15:37 Dose: 2 gm Documented by: Sodium Chloride (Normal Saline) 1,000 mls @ 100 mls/hr IV ASDIRECTED [facility] Last Admin: 01/28/20 06:13 Dose: 125 mls/hr Documented by: Azithromycin 500 mg/ Sodium (Chloride) 250 mls @ 250 mls/hr IV Q24H [facility] Last Admin: 01/27/20 15:47 Dose: 250 mls/hr Documented by: Sodium Chloride (Normal Saline) 500 mls @ 500 mls/hr IV .BOLUS ONE Stop: 01/25/20 18:42 Last Admin: 01/25/20 17:54 Dose: 500 mls/hr Documented by: Polyethylene Glycol (Miralax) 17 gm PO DAILY PRN PRN Reason: Constipation Last Admin: 01/26/20 08:28 Dose: 17 gm Documented by: - Exam General: Alert, Oriented, Cooperative, No Acute Distress Lungs: Clear to Auscultation (BUL), Normal Respiratory Effort, Rales (R>L), Wheezing (bibasilar, occasional in upper lobes.) Cardiovascular: Regular Rate, Regular Rhythm GI/Abdominal Exam: Normal Bowel Sounds, Soft, Non-Tender, No Distention Extremities: No Pedal Edema Sepsis Event Note - Evaluation Sepsis Screening Result: No Definite Risk - Focused Exam Vital Signs: Vital Signs Temp Pulse Resp BP Pulse Ox 01/28/20 08:00 97.1 F 73 16 123/64 97 01/28/20 06:15 97.8 F 73 16 123/64 97 - Problem List & Annotations (1) Pneumonia SNOMED Code(s): 364613344 Code(s): J18.9 - PNEUMONIA, UNSPECIFIED ORGANISM Status: Acute Current Visit: Yes Qualifiers: Laterality: right Lung location: lower lobe of lung (2) Dehydration SNOMED Code(s): 21343993 Code(s): E86.0 - DEHYDRATION Status: Resolved Current Visit: Yes Annotation/Comment:: Resolved. (3) Nausea & vomiting SNOMED Code(s): 16759585 Code(s): R11.2 - NAUSEA WITH VOMITING, UNSPECIFIED Status: Resolved Current Visit: Yes (4) Asthma SNOMED Code(s): 866395523 Code(s): J45.909 - UNSPECIFIED ASTHMA, UNCOMPLICATED Status: Chronic Current Visit: Yes Qualifiers: Asthma severity: mild Asthma persistence: intermittent Asthma complication type: with acute exacerbation Qualified Code(s): J45.21 - Mild intermittent asthma with (acute) exacerbation (5) Chronic idiopathic constipation SNOMED Code(s): 34406380 Code(s): K59.04 - CHRONIC IDIOPATHIC CONSTIPATION Status: Chronic Current Visit: Yes - Problem List Review Problem List Initiated/Reviewed/Updated: Yes - My Orders Last 24 Hours: My Active Orders 01/28/20 09:49 Convert IV to Peripheral Lock [Convert IV to Saline Lock] [OM.PC] Routine 01/28/20 Lunch Regular Diet [DIET] 01/28/20 16:00 Azithromycin [Zithromax] 500 mg PO Q24H 01/28/20 21:00 Cefdinir [Omnicef] 300 mg PO BID Mometasone/Formoterol [Dulera 100-5 MCG] 2 puff IH BIDRT - Plan Plan:: 1. Pneumonia: had 3 doses of Rocephin & Azithromycin, will switch to oral Cefdinir 300 mg bid and Azithromycin 500 mg daily this evening. Albuterol nebs. Dulera HFA bid, will get tonight. Sputum culture pending. 2. Regular diet. 3. Saline lock. 4. Constipation: MiraLAX daily, Metamucil daily, Probiotics twice a day. Hold for loose stools 5. If tolerates oral antibiotics, Fredrickera lauren will go home tomorrow. 6. Adjust treatments as necessary.
[2020-01-28] MEDS ORDERED: Azithromycin 500 MG Tab PO SCH (16:00)
[2020-01-28] MEDS: Multivitamin Tab PO SCH (20:40)
[2020-01-28] MEDS: Formoterol/Mometasone 100-5 MCG 8.8 GM Inhaler IH SCH (20:59)
[2020-01-28] MEDS: Cefdinir 300 MG Cap PO SCH (21:16)
[2020-01-29] MEDS: Formoterol/Mometasone 100-5 MCG 8.8 GM Inhaler IH SCH (06:45)
[2020-01-29] MEDS ORDERED: Formoterol/Mometasone 100-5 MCG 8.8 GM Inhaler IH SCH (08:00)
[2020-01-29] MEDS: Psyllium Husk Powder Sugar Free 5.85 GM Packet PO SCH (08:12)
[2020-01-29] MEDS: Polyethylene Glycol 3350 Powder 17 GM Packet PO SCH (08:12)
[2020-01-29] MEDS: Cefdinir 300 MG Cap PO SCH (08:13)
[2020-01-29] MEDS: Saccharomyces Boulardii (Probiotic) 250 MG Cap PO SCH (08:13)
[2020-01-29] MEDS: guaiFENesin 600 MG Tab.ER PO SCH (08:13)
[2020-01-29] MEDS: Albuterol 0.083% 2.5 MG/3 ML Neb Soln NEB PRN (08:14)
[2020-01-29 10:24] VITALS: BP 120/82; PULSE 67
--- NOTE | 2020-01-29 14:32 | PCM.DCSUM1 ---
Discharge Summary - Hospital Course HPI Initial Comments: Jenny presented to [facility] with fever, chills, shortness of breath, wheezing for past 4 days. She had gotten a cold over Labor Day that her daughter had, but was feeling better going into the weekend. On Wednesday she started having fevers, chills and started declining since then. Sore throat, nasal congestion, body aches. Loss of appetite, hasn't eaten much all week. Started having nausea and vomiting yesterday. No diarrhea, tends to have constipation, takes MiraLAX for this. No dysuria, or frequency, hematuria. Decreased urine output. No rash, easy bruising or bleeding. WBC in clinic was 13.0, with left shift. Chemistry was normal, LFTs were normal. COVID and Influenza were negative. CXR should Right lower lobe pneumonia. Temp in clinic was 100.7, had taken Tylenol before coming to clinic, her blood pressure 93/55. Received IV bolus in the clinic prior to arrival to the floor. Oxygen in clinic was 90% on Room air, given nebulized treatment, no change in oxygen saturation there but came up to 93% when she reached the floor. Diagnosis: Stroke: No - Discharge Data Discharge Date: 01/29/20 Discharge Disposition: Home, Self-Care 01 Condition: Good - Referral to Home Health Primary Care Physician: James Ruth MD - Discharge Diagnosis/Problem(s) (1) Pneumonia SNOMED Code(s): 787457329 ICD Code: J18.9 - PNEUMONIA, UNSPECIFIED ORGANISM Status: Acute Qualifiers: Laterality: right Lung location: lower lobe of lung (2) Dehydration SNOMED Code(s): 28968356 ICD Code: E86.0 - DEHYDRATION Status: Resolved Problem Details: Resolved. (3) Nausea & vomiting SNOMED Code(s): 15711608 ICD Code: R11.2 - NAUSEA WITH VOMITING, UNSPECIFIED Status: Resolved (4) Asthma SNOMED Code(s): 717051619 ICD Code: J45.909 - UNSPECIFIED ASTHMA, UNCOMPLICATED Status: Chronic Qualifiers: Asthma severity: mild Asthma persistence: intermittent Asthma complication type: with acute exacerbation Qualified Code(s): J45.21 - Mild intermittent asthma with (acute) exacerbation (5) Chronic idiopathic constipation SNOMED Code(s): 37125808 ICD Code: K59.04 - CHRONIC IDIOPATHIC CONSTIPATION Status: Chronic - Patient Summary/Data Hospital Course: Sergio was direct admission from the [facility] for right lower lobe pneumonia, started on Rocephin and Azithromycin, albuterol nebs, DuoNebs and Budesonide nebs bid. Did not tolerate Budesonide nebs, changed to Dulera HFA, DuoNebs discontinued. Received Rocephin 3 doses, Cefdinir 2 doses, and Azithromycin 4 doses during hospital stay, will go home with 1 more dose of Azithromycin and 12 more of Cefdinir to complete 10 day course. She was having nausea, vomiting the day before admission, had no emesis during hospital course, refused most liquids on day of admission though she was on clear liquid diet, she started taking more in on Thursday 01/25, diet was advanced to soft then regular diet on Wednesday. Saline locked on Wednesday, switched to oral antibiotics. She had constipation on admission, she was able to have bowel movement on 01/27 and again today. COVID was negative. WBC normalized on 01/25. - Patient Instructions Diet: Regular Diet as Tolerated Activity: As Tolerated Driving: May Drive Today Showering/Bathing: May Shower Notify Provider of: Fever, Nausea and/or Vomiting (shortness of breath or worsening wheezing) Other/Special Instructions: Follow up with Dr Ruth in 1 week. Return to work Feb 04. - Discharge Plan *PRESCRIPTION DRUG MONITORING PROGRAM REVIEWED*: Not Applicable *COPY OF PRESCRIPTION DRUG MONITORING REPORT IN PATIENT JERRY: Not Applicable Prescriptions/Med Rec: Formoterol/Mometasone [Dulera 100-50 MCG] 2 puff IH BID 1 Days #1 hfa.aer.ad Cefdinir [Omnicef] 300 mg PO BID 12 Days #12 cap Azithromycin [Zithromax] 500 mg PO Q24H 1 Days #1 tablet Home Medications: Home Meds .Fish Oil 1 cap PO 199910/03/17 [History] Multivitamin [Daily Multiple Vitamin] 1 tab PO 199910/03/17 [History] lisinopriL [Lisinopril] 10 mg PO 199901/25/20 [History] Psyllium with Sucrose [Metamucil] 1 packet PO DAILY 01/26/20 [History] Saccharomyces Boulardii [Florastor] 250 mg PO DAILY 01/26/20 [History] polyethylene glycoL 3350 [MiraLAX] 17 gm PO DAILY 01/26/20 [History] Acetaminophen [Tylenol] 650 mg PO Q4H PRN tablet 01/28/20 [Rx] Albuterol [Proventil Neb Soln] 2.5 mg NEB Q4HR PRN neb 01/28/20 [Rx] Azithromycin [Zithromax] 500 mg PO Q24H 1 Days #1 tablet 01/28/20 [Rx] Cefdinir [Omnicef] 300 mg PO BID 12 Days #12 cap 01/28/20 [Rx] Formoterol/Mometasone [Dulera 100-50 MCG] 2 puff IH BID 1 Days #1 hfa.aer.ad 01/28/20 [Rx] guaiFENesin [Mucinex] 600 mg PO BID tab.er 01/28/20 [Rx] Oxygen Therapy Mode: Room Air Patient Handouts: Asthma, Adult, Cefdinir capsules, Dehydration, Adult, [id number], Azithromycin tablets, Formoterol; Mometasone metered dose inhaler, Preventing Antibiotic Resistance, Community-Acquired Pneumonia, Adult, [id number] Referrals: James Ruth MD [Primary Care Provider] - - Discharge Summary/Plan Comment DC Time >30 min.: No - General Info Date of Service: 01/29/20 Subjective Update: Sergio is feeling better today, does not get winded when she was up walking in the halls, appetite is better. Tolerating the Dulera well. Had BM this morning. No abdominal pain. - Patient Data Vitals - Most Recent: Last Vital Signs Temp 98.2 F 01/29/20 08:00 Pulse 67 01/29/20 08:00 Resp 18 01/29/20 08:00 BP 120/82 01/29/20 08:00 Pulse Ox 93 L 01/29/20 08:00 Weight - Most Recent: 210 lb 1.6 oz [facility] Results - Last 24 hrs: Microbiology 01/25/20 15:52 Aerobic Blood Culture - Preliminary Blood - Venous NO GROWTH AFTER 3 DAYS Anaerobic Blood Culture - Preliminary NO GROWTH AFTER 3 DAYS 01/25/20 15:58 Aerobic Blood Culture - Preliminary Blood - Venous - Lab Draw NO GROWTH AFTER 3 DAYS Anaerobic Blood Culture - Preliminary NO GROWTH AFTER 3 DAYS 09/18/20 17:30 Gram Stain - Final Sputum - Expectorated Sputum Culture - Final Yeast Isolated Med Orders - Current: Current Medications Discontinued Medications Acetaminophen (Tylenol) 650 mg PO Q4H PRN PRN Reason: Pain (Mild 1-3)/fever Last Admin: 01/28/20 13:22 Dose: 650 mg Documented by: Albuterol (Proventil Neb Soln) 2.5 mg NEB Q2H PRN PRN Reason: Shortness Of Breath/wheezing Last Admin: 01/29/20 08:14 Dose: 2.5 mg Documented by: Azithromycin (Zithromax) 500 mg PO Q24H [facility] Last Admin: 01/28/20 16:10 Dose: 500 mg Documented by: Budesonide (Pulmicort) 0.25 mg NEB BIDRT [facility] Last Admin: 01/28/20 06:13 Dose: 0.25 mg Documented by: Cefdinir (Omnicef) 300 mg PO BID [facility] Last Admin: 01/29/20 08:13 Dose: 300 mg Documented by: Ceftriaxone Sodium (Rocephin) 2 gm IVPUSH Q24H [facility] Last Admin: 01/27/20 15:37 Dose: 2 gm Documented by: Guaifenesin (Mucinex) 600 mg PO BID [facility] Last Admin: 01/29/20 08:13 Dose: 600 mg Documented by: Sodium Chloride (Normal Saline) 1,000 mls @ 100 mls/hr IV ASDIRECTED [facility] Last Admin: 01/28/20 06:13 Dose: 125 mls/hr Documented by: Azithromycin 500 mg/ Sodium (Chloride) 250 mls @ 250 mls/hr IV Q24H [facility] Last Admin: 01/27/20 15:47 Dose: 250 mls/hr Documented by: Sodium Chloride (Normal Saline) 500 mls @ 500 mls/hr IV .BOLUS ONE Stop: 01/25/20 18:42 Last Admin: 01/25/20 17:54 Dose: 500 mls/hr Documented by: Ibuprofen (Motrin) 400 mg PO Q6H PRN PRN Reason: Pain (mild 1-3) Last Admin: 01/28/20 21:09 Dose: 400 mg Documented by: Mometasone Furoate/Formoterol Fumar (Dulera 100-5 Mcg) 2 puff IH BIDRT [facility] Last Admin: 01/29/20 06:45 Dose: 2 puff Documented by: Mometasone Furoate/Formoterol Fumar (Dulera 100-5 Mcg) 2 puff IH BIDRT [facility] Multivitamins/Minerals/Vitamin C (Tab-A-Brittaney) 1 tab PO DAILY@1999 [facility] Last Admin: 01/28/20 20:40 Dose: 1 tab Documented by: Ondansetron HCl (Zofran) 4 mg IVPUSH Q4H PRN PRN Reason: Nausea/Vomiting Last Admin: 01/25/20 17:55 Dose: 4 mg Documented by: Polyethylene Glycol (Miralax) 17 gm PO DAILY PRN PRN Reason: Constipation Last Admin: 01/26/20 08:28 Dose: 17 gm Documented by: Polyethylene Glycol (Miralax) 17 gm PO DAILY [facility] Last Admin: 01/29/20 08:12 Dose: 17 gm Documented by: Promethazine HCl (Phenergan) 25 mg PO Q6H PRN PRN Reason: nausea, able to take PO Last Admin: 01/26/20 22:29 Dose: 25 mg Documented by: Psyllium Husk (Metamucil Sugar Free) 1 pkt PO DAILY [facility] Last Admin: 01/29/20 08:12 Dose: 1 pkt Documented by: Saccharomyces Boulardii (Florastor) 250 mg PO BID [facility] Last Admin: 01/29/20 08:13 Dose: 250 mg Documented by: Sodium Chloride (Saline Flush) 10 ml FLUSH ASDIRECTED PRN PRN Reason: Keep Vein Open - Exam General: Reports: Alert, Oriented, Cooperative, No Acute Distress Lungs: Reports: Clear to Auscultation (BUL), Normal Respiratory Effort, Rales (improved on right), Wheezing Cardiovascular: Reports: Regular Rate, Regular Rhythm GI/Abdominal Exam: Normal Bowel Sounds, Soft, Non-Tender, No Distention Extremities: No Pedal Edema
== END 2020-01-29 09:00 | disposition home or self-care (01) | DRG 139 ==
LOC: FB.MS 14:39
PROVIDERS: ADMIT Family Medicine; ATTEND Family Medicine
DX: J18.9 Pneumonia, unspecified organism (principal); J45.21 Mild intermittent asthma with (acute) exacerbation; K59.04 Chronic idiopathic constipation; F17.200 Nicotine dependence, unspecified, uncomplicated; K59.00 Constipation, unspecified; Z90.49 Acquired absence of other specified parts of digestive tract; Z90.710 Acquired absence of both cervix and uterus
CPT/HCPCS: 36415; 80048; 85025; 87040; 87070; 87205; 94150; 94640; A9270-GY; J0456; J0696; J2405; J7030; J7040; J7050

== ENCOUNTER 2023-03-13 20:52 | Emergency (ER) | payer BC ==
[2023-03-13] MEDS ORDERED: Ketorolac 30 MG/ML SDV IM ONE (21:07)
[2023-03-13 22:22] VITALS: BP 119/89; PULSE 74
== END 2023-03-13 22:20 | disposition home or self-care (01) ==
LOC: FB.ED 20:52
DX: S63.502A Unspecified sprain of left wrist, initial encounter (principal); J45.909 Unspecified asthma, uncomplicated; F17.200 Nicotine dependence, unspecified, uncomplicated; Z79.899 Other long term (current) drug therapy; W17.89XA Other fall from one level to another, initial encounter
CPT/HCPCS: 73110-LT; 96372; 99283; J1885